=== PATIENT | male | born 1935 | race African-American/Black ===

== ENCOUNTER 2021-05-29 19:45 | Emergency (ER) | payer OTHER ==
[~2021-05-29] VITALS: Ht 172.7 cm; Wt 63.6 kg
[2021-05-29] MEDS ORDERED: TIOT185 IH (20:24)
[2021-05-29] MEDS ORDERED: ACET-2080 PO (20:24)
[2021-05-29] MEDS ORDERED: IPRA4AER IH (20:24)
[2021-05-29 20:38] LABS: BASOPHILS % (AUTO) 0.5 % (0.0-2.0); EOSINOPHILS % (AUTO) 3.7 % (1.0-6.0); HEMOGLOBIN 10.9 g/dL (13.5-17.5); LYMPHOCYTES # (AUTO) 1.9 K/uL (1.0-4.8); LYMPHOCYTES % (AUTO) 40.8 % (22.0-44.0); MEAN CORPUSCULAR HGB CONC 33.1 G/dL (31.0-37.0); MEAN CORPUSCULAR VOLUME 97 fL (80-100); MONOCYTES # (AUTO) 0.4 K/uL (0.1-1.0); MONOCYTES % (AUTO) 9.2 % (2.0-9.0); NEUTROPHILS # (AUTO) 2.1 K/uL (1.8-7.7); NEUTROPHILS % (AUTO) 45.8 % (40.0-70.0); PLATELET COUNT (AUTO) 165 K/uL (150-450); RED BLOOD CELL COUNT(AUTO) 3.42 MIL/uL (4.50-5.90); RED CELL DISTRIBUTION WIDTH 14.7 % (11.5-14.5)
[2021-05-29 20:43] LABS: COVID AG,FIA SOURCE NASOPHARYNGEAL
[2021-05-29] MEDS ORDERED: PERTUSS(ACELL),DIPH,TET VAC/PF 0.5 ML SYRINGE IM. ONE (20:45)
[2021-05-29] MEDS ORDERED: BACITRACIN 0.9 GM PACKET OINTMENT TP ONE (20:45)
[2021-05-29] MEDS ORDERED: LIDOCAINE 1% 10 ML VIAL SQ ONE (20:45)
[2021-05-29 20:47] LABS: ANION GAP 11 mmol/L (8-16); CALCIUM, TOTAL 8.7 mg/dL (8.8-10.5); CARBON DIOXIDE 29 mmol/L (22-29); CHLORIDE 104 mmol/L (98-107); CREATININE 1.02 mg/dL (0.60-1.30); GLUCOSE,RANDOM 96 mg/dL (70-110); POTASSIUM 4.8 mmol/L (3.5-5.1); SODIUM SERUM 144 mmol/L (136-145); UREA NITROGEN, BLOOD 20 mg/dL (7-18)
[2021-05-29 20:49] LABS: GLOMERULAR FILTR. RATE CALC > 60 mL/min (>60)
[2021-05-29 20:52] LABS: ALANINE AMINOTRANSFERASE 47 U/L (12-78); ALBUMIN 3.3 g/dL (3.4-5.0); ALKALINE PHOSPHATASE 69 U/L (46-116); ASPARTATE AMINOTRANSFERASE 47 U/L (15-37); BILIRUBIN,TOTAL 0.5 mg/dL (0.1-1.0); LIPASE 29 U/L (73-393); TOTAL PROTEIN, SERUM 7.5 g/dL (6.4-8.2)
[2021-05-29 20:54] LABS: AMMONIA 16 umol/L (11-32)
[2021-05-29 20:57] LABS: B-TYPE NATRIURETIC PEPTIDE 138 pg/mL (0-100)
[2021-05-29 21:13] LABS: LACTIC ACID 0.9 mmol/L (0.4-2.0)
[2021-05-30 00:17] LABS: APPEARANCE,URINE CLEAR (CLEAR); BILIRUBIN,URINE NEGATIVE (NEGATIVE); GLUCOSE, URINE (UA) NEGATIVE (NEGATIVE); KETONES,URINE NEGATIVE (NEGATIVE); LEUKOCYTE ESTERASE ,URINE NEGATIVE (NEGATIVE); NITRATE,URINE NEGATIVE (NEGATIVE); OCCULT BLOOD,URINE NEGATIVE (NEGATIVE); PH,URINE 6.5 (5.0-8.0); PROTEIN,URINE TRACE mg/dL (NEGATIVE); SPECIFIC GRAVITIY, URINE 1.025 (1.003-1.030)
[2021-05-30 00:24] LABS: AMPHET/METH SCREEN,URINE NEGATIVE (NEGATIVE); BARBITURATE SCREEN, URINE NEGATIVE (NEGATIVE); BENZODIAZEPINES SCREEN,URINE NEGATIVE (NEGATIVE); CANNABINOID SCREEN,URINE NEGATIVE (NEGATIVE); COCAINE SCREEN,URINE NEGATIVE (NEGATIVE); METHADONE SCREEN, URINE NEGATIVE (NEGATIVE); OPIATE SCREEN,URINE NEGATIVE (NEGATIVE)
[2021-05-30 00:25] LABS: PHENCYCLIDINE SCREEN,URINE NEGATIVE (NEGATIVE)
[2021-05-30 00:31] LABS: BACTERIA,URINE None Seen /HPF (None Seen); RBC,URINE 0-2 /HPF (0-2); WBC,URINE 0-2 /HPF (0-5)
[2021-05-30 01:50] VITALS: BP 149/81
== END 2021-05-30 02:00 | disposition short-term general hospital (02) ==
LOC: EMS 19:45
DX: S61.215A Laceration without foreign body of left ring finger without damage to nail, initial encounter (principal); R41.82 Altered mental status, unspecified; Z20.822 Contact with and (suspected) exposure to COVID-19; Z79.899 Other long term (current) drug therapy; W18.39XA Other fall on same level, initial encounter; Y93.89 Activity, other specified; Y92.89 Other specified places as the place of occurrence of the external cause; Y99.8 Other external cause status
CPT/HCPCS: 12001; 36415; 70450; 71045; 73130; 80053; 80307; 81001; 82140; 82962; 83605; 83690; 83880; 84484; 85025; 87426; 90471; 90715; 93005; 99285; G0480; J3490

== ENCOUNTER 2022-06-30 13:35 | Inpatient (IN) | payer OTHER ==
[~2022-06-30] VITALS: Ht 177.8 cm; Wt 66.5 kg
[~2022-06-30 13:35] MED LIST: ACET-2080 PO; IPRA4AER IH; TIOT185 IH
[2022-06-30] MEDS ORDERED: LABETALOL HCL 5 MG/ML 20 ML VIAL IVP PRN ×2 (13:45)
[2022-06-30] MEDS ORDERED: IOHEXOL 350 MG/ML 100 ML VIAL ONE (13:53)
[2022-06-30] MEDS ORDERED: SODIUM CHLORIDE 0.9% 100 ML ONE (13:53)
[2022-06-30 14:00] LABS: BASOPHILS % (AUTO) 0.2 % (0.0-2.0); EOSINOPHILS % (AUTO) 0 % (1.0-6.0); HEMATOCRIT 35.9 % (41-53); HEMOGLOBIN 11.5 g/dL (13.5-17.5); LYMPHOCYTES # (AUTO) 0.3 K/uL (1.0-4.8); LYMPHOCYTES % (AUTO) 9.4 % (22.0-44.0); MEAN CORPUSCULAR HEMOGLOBIN 30.7 pg (26.0-34.0); MEAN CORPUSCULAR VOLUME 96 fL (80-100); MONOCYTES # (AUTO) 0.2 K/uL (0.1-1.0); MONOCYTES % (AUTO) 5.8 % (2.0-9.0); NEUTROPHILS # (AUTO) 2.8 K/uL (1.8-7.7); NEUTROPHILS % (AUTO) 84.6 % (40.0-70.0); PLATELET COUNT (AUTO) 109 K/uL (150-450); RED BLOOD CELL COUNT(AUTO) 3.74 MIL/uL (4.50-5.90); RED CELL DISTRIBUTION WIDTH 15.9 % (11.5-14.5)
[2022-06-30 14:11] LABS: ANION GAP 7 mmol/L (8-16); CALCIUM, TOTAL 9.5 mg/dL (8.8-10.5); CARBON DIOXIDE 27 mmol/L (22-29); CHLORIDE 105 mmol/L (98-107); CREATININE 0.97 mg/dL (0.60-1.30); GLOMERULAR FILTR. RATE CALC > 60 mL/min (>60); GLUCOSE,RANDOM 125 mg/dL (70-110); POTASSIUM 5.7 mmol/L (3.5-5.1); SODIUM SERUM 139 mmol/L (136-145); UREA NITROGEN, BLOOD 43 mg/dL (7-18)
[2022-06-30 14:13] LABS: PROTHROMBIN TIME 11.1 SEC (9.4-11.6)
[2022-06-30 14:17] LABS: ALANINE AMINOTRANSFERASE 42 U/L (12-78); ALBUMIN 3.1 g/dL (3.4-5.0); ALKALINE PHOSPHATASE 151 U/L (46-116); ASPARTATE AMINOTRANSFERASE 60 U/L (15-37); BILIRUBIN,TOTAL 0.3 mg/dL (0.1-1.0); TOTAL PROTEIN, SERUM 7.6 g/dL (6.4-8.2)
[2022-06-30] MEDS: SODIUM CHLORIDE 0.9% 2,000 ML IV ONE ×2 (14:45→15:26)
[2022-06-30 15:45] LABS: LACTIC ACID 0.9 mmol/L (0.4-2.0)
[2022-06-30] MEDS ORDERED: BISACODYL 10 MG RECTAL RECTAL SUPPOSITORY PR PRN (15:45)
[2022-06-30] MEDS ORDERED: HYDROCODONE/ACETAMINOPHEN 5-325 MG TABLET PO PRN (15:45)
[2022-06-30] MEDS ORDERED: ASPIRIN 81 MG CHEWABLE TABLET PO ONE (15:45)
[2022-06-30] MEDS ORDERED: MAGNESIUM HYDROXIDE SUSPENSION 30 ML UDCUP PO PRN (15:45)
[2022-06-30] MEDS ORDERED: SODIUM CHLORIDE 0.9% 2,000 ML IV ONE (15:45)
[2022-06-30] MEDS ORDERED: IPRATROPIUM BROMIDE 0.5 MG/2.5 ML NEB SOLUTION NEB PRN (15:45)
[2022-06-30] MEDS ORDERED: ACETAMINOPHEN 325 MG TABLET PO PRN (15:45)
[2022-06-30] MEDS ORDERED: ONDANSETRON HCL 4 MG/2 ML VIAL IVP PRN (15:45)
[2022-06-30] MEDS ORDERED: MORPHINE SULFATE 2 MG/ML SYRINGE IVP PRN (15:45)
[2022-06-30] MEDS ORDERED: ALBUTEROL SULFATE 2.5 MG/0.5 ML NEB SOLUTION NEB PRN (15:45)
[2022-06-30] MEDS ORDERED: ZOLPIDEM TARTRATE 5 MG TABLET PO PRN (15:45)
[2022-06-30] MEDS ORDERED: CefTRIAXone 1 GM/DEXTROSE 50 ML IV ONE (15:45)
[2022-06-30] MEDS: BENZONATATE 100 MG CAPSULE PO SCH ×2 (16:00→19:55)
[2022-06-30 16:03] LABS: APPEARANCE,URINE TURBID (CLEAR); BILIRUBIN,URINE NEGATIVE (NEGATIVE); GLUCOSE, URINE (UA) NEGATIVE (NEGATIVE); KETONES,URINE NEGATIVE (NEGATIVE); LEUKOCYTE ESTERASE ,URINE LARGE (NEGATIVE); NITRATE,URINE NEGATIVE (NEGATIVE); OCCULT BLOOD,URINE LARGE (NEGATIVE); PH,URINE 5.5 (5.0-8.0); PROTEIN,URINE 100-200,SEE CONFIRM mg/dL (NEGATIVE); UROBILINOGEN,URINE <=1.0 mg/dL (<=1.0)
[2022-06-30 16:10] LABS: AMPHET/METH SCREEN,URINE NEGATIVE (NEGATIVE); BARBITURATE SCREEN, URINE NEGATIVE (NEGATIVE); BENZODIAZEPINES SCREEN,URINE NEGATIVE (NEGATIVE); CANNABINOID SCREEN,URINE NEGATIVE (NEGATIVE); COCAINE SCREEN,URINE NEGATIVE (NEGATIVE); METHADONE SCREEN, URINE NEGATIVE (NEGATIVE); OPIATE SCREEN,URINE NEGATIVE (NEGATIVE); PHENCYCLIDINE SCREEN,URINE NEGATIVE (NEGATIVE)
[2022-06-30 16:13] LABS: BACTERIA,URINE Many /HPF (None Seen); RBC,URINE 26-50 /HPF (0-2); SQUAMOUS EPITHELIAL CELL,UR Few /LPF (None Seen); SULFOSALICYLIC ACID,URINE 3+ (Negative); WBC,URINE 51-100 /HPF (0-5)
[2022-06-30] MEDS: HEPARIN SODIUM,PORCINE 5,000 UNITS/ML VIAL SQ SCH (17:42)
[2022-06-30] MEDS: AZITHROMYCIN 500 MG/NS 250 ML IV SCH (17:43)
[2022-06-30] MEDS: MethylPREDNISolone SOD SUCC 125 MG/2 ML VIAL IVP SCH (18:05)
[2022-06-30] MEDS: DOCUSATE SODIUM 100 MG CAPSULE PO SCH (19:53)
[2022-06-30] MEDS: ALBUTEROL SULFATE 2.5 MG/0.5 ML NEB SOLUTION NEB SCH (19:54)
[2022-06-30] MEDS: GuaiFENesin SR 600 MG ER TABLET PO SCH (19:54)
[2022-06-30] MEDS: IPRATROPIUM BROMIDE 0.5 MG/2.5 ML NEB SOLUTION NEB SCH (19:54)
[2022-06-30] MEDS: ATORVASTATIN CALCIUM 20 MG TABLET PO SCH (19:54)
[2022-06-30] MEDS ORDERED: SODIUM CHLORIDE 0.9% 500 ML IV ONE (23:30)
[2022-07-01] VITALS (7 sets, daily range): BP systolic 93–131; BP diastolic 7–88
[2022-07-01] MEDS: HEPARIN SODIUM,PORCINE 5,000 UNITS/ML VIAL SQ SCH ×4 (00:30→23:43)
[2022-07-01] MEDS: MethylPREDNISolone SOD SUCC 125 MG/2 ML VIAL IVP SCH ×4 (00:38→18:25)
[2022-07-01] MEDS: ALBUTEROL SULFATE 2.5 MG/0.5 ML NEB SOLUTION NEB SCH ×4 (02:26→20:07)
[2022-07-01] MEDS: IPRATROPIUM BROMIDE 0.5 MG/2.5 ML NEB SOLUTION NEB SCH ×4 (02:26→20:07)
[2022-07-01 06:55] LABS: BASOPHILS % (AUTO) 0.1 % (0.0-2.0); EOSINOPHILS % (AUTO) 0 % (1.0-6.0); HEMATOCRIT 32.6 % (41-53); HEMOGLOBIN 10.3 g/dL (13.5-17.5); LYMPHOCYTES # (AUTO) 0.2 K/uL (1.0-4.8); LYMPHOCYTES % (AUTO) 4.1 % (22.0-44.0); MEAN CORPUSCULAR HEMOGLOBIN 30.5 pg (26.0-34.0); MEAN CORPUSCULAR HGB CONC 31.5 G/dL (31.0-37.0); MEAN CORPUSCULAR VOLUME 97 fL (80-100); MONOCYTES # (AUTO) 0.1 K/uL (0.1-1.0); MONOCYTES % (AUTO) 1.7 % (2.0-9.0); NEUTROPHILS # (AUTO) 4.6 K/uL (1.8-7.7); PLATELET COUNT (AUTO) 110 K/uL (150-450); RED BLOOD CELL COUNT(AUTO) 3.38 MIL/uL (4.50-5.90); RED CELL DISTRIBUTION WIDTH 16.2 % (11.5-14.5)
[2022-07-01 07:03] LABS: NEUTROPHILS % (AUTO) 94.1 % (40.0-70.0)
[2022-07-01 07:04] LABS: ANION GAP 3 mmol/L (8-16); CALCIUM, TOTAL 8.8 mg/dL (8.8-10.5); CARBON DIOXIDE 25 mmol/L (22-29); CHLORIDE 107 mmol/L (98-107); CREATININE 1.13 mg/dL (0.60-1.30); GLOMERULAR FILTR. RATE CALC > 60 mL/min (>60); GLUCOSE,RANDOM 111 mg/dL (70-110); POTASSIUM 6.5 mmol/L (3.5-5.1); SODIUM SERUM 135 mmol/L (136-145); UREA NITROGEN, BLOOD 41 mg/dL (7-18)
[2022-07-01 07:09] LABS: CHOL/HDL RATIO 1.8 (4.2-7.3)
[2022-07-01] MEDS ORDERED: SODIUM POLYSTYRENE SULFONATE 15 GM/60 ML SUSPENSION BOTTLE PR ONE ×2 (07:45→16:00)
[2022-07-01] MEDS: BENZONATATE 100 MG CAPSULE PO SCH ×3 (09:00→20:03)
[2022-07-01] MEDS: PANTOPRAZOLE SODIUM 40 MG DR TABLET PO SCH (09:00)
[2022-07-01] MEDS: GuaiFENesin SR 600 MG ER TABLET PO SCH ×2 (09:00→20:03)
[2022-07-01] MEDS: DOCUSATE SODIUM 100 MG CAPSULE PO SCH ×2 (09:00→20:03)
[2022-07-01 15:10] LABS: CHOL/HDL RATIO 1.7 (4.2-7.3)
[2022-07-01 15:11] LABS: POTASSIUM 6.4 mmol/L (3.5-5.1)
[2022-07-01] MEDS: CefTRIAXone 1 GM/DEXTROSE 50 ML IV SCH (15:50)
[2022-07-01] MEDS: AZITHROMYCIN 500 MG/NS 250 ML IV SCH (17:33)
[2022-07-01] MEDS: ATORVASTATIN CALCIUM 20 MG TABLET PO SCH (20:03)
[2022-07-02] MEDS: MethylPREDNISolone SOD SUCC 125 MG/2 ML VIAL IVP SCH ×5 (00:06→23:25)
[2022-07-02] MEDS: ALBUTEROL SULFATE 2.5 MG/0.5 ML NEB SOLUTION NEB SCH ×4 (02:19→20:08)
[2022-07-02] MEDS: IPRATROPIUM BROMIDE 0.5 MG/2.5 ML NEB SOLUTION NEB SCH ×4 (02:19→20:08)
[2022-07-02 04:36] VITALS: BP 107/66
[2022-07-02] MEDS: HEPARIN SODIUM,PORCINE 5,000 UNITS/ML VIAL SQ SCH (08:00)
[2022-07-02 08:11] VITALS: BP 130/80
[2022-07-02 08:47] LABS: BASOPHILS % (AUTO) 0.1 % (0.0-2.0); EOSINOPHILS % (AUTO) 0 % (1.0-6.0); HEMATOCRIT 32.7 % (41-53); HEMOGLOBIN 10.3 g/dL (13.5-17.5); LYMPHOCYTES # (AUTO) 0.4 K/uL (1.0-4.8); LYMPHOCYTES % (AUTO) 5.7 % (22.0-44.0); MEAN CORPUSCULAR HEMOGLOBIN 30.2 pg (26.0-34.0); MEAN CORPUSCULAR HGB CONC 31.5 G/dL (31.0-37.0); MEAN CORPUSCULAR VOLUME 96 fL (80-100); MONOCYTES # (AUTO) 0.2 K/uL (0.1-1.0); MONOCYTES % (AUTO) 3.3 % (2.0-9.0); NEUTROPHILS # (AUTO) 5.8 K/uL (1.8-7.7); RED BLOOD CELL COUNT(AUTO) 3.41 MIL/uL (4.50-5.90); RED CELL DISTRIBUTION WIDTH 16.2 % (11.5-14.5)
[2022-07-02 08:57] LABS: ANION GAP 4 mmol/L (8-16); CARBON DIOXIDE 26 mmol/L (22-29); CHLORIDE 109 mmol/L (98-107); CREATININE 1.14 mg/dL (0.60-1.30); GLOMERULAR FILTR. RATE CALC > 60 mL/min (>60); GLUCOSE,RANDOM 133 mg/dL (70-110); POTASSIUM 5.6 mmol/L (3.5-5.1); SODIUM SERUM 139 mmol/L (136-145); UREA NITROGEN, BLOOD 43 mg/dL (7-18)
[2022-07-02] MEDS: DOCUSATE SODIUM 100 MG CAPSULE PO SCH ×2 (09:00→20:08)
[2022-07-02] MEDS: BENZONATATE 100 MG CAPSULE PO SCH ×3 (09:00→20:09)
[2022-07-02] MEDS: PANTOPRAZOLE SODIUM 40 MG DR TABLET PO SCH (09:00)
[2022-07-02] MEDS: GuaiFENesin SR 600 MG ER TABLET PO SCH ×2 (09:00→20:09)
[2022-07-02 09:36] LABS: NEUTROPHILS % (AUTO) 90.9 % (40.0-70.0); PLATELET COUNT (AUTO) 97 K/uL (150-450)
[2022-07-02 12:03] VITALS: BP 134/87
[2022-07-02] MEDS ORDERED: SODIUM POLYSTYRENE SULFONATE 15 GM/60 ML SUSPENSION BOTTLE PR ONE (13:30)
[2022-07-02 14:16] LABS: COVID AG,FIA SOURCE NASOPHARYNGEAL
[2022-07-02 16:02] VITALS: BP 141/87
[2022-07-02] MEDS: CefTRIAXone 1 GM/DEXTROSE 50 ML IV SCH (16:14)
[2022-07-02] MEDS: AZITHROMYCIN 500 MG/NS 250 ML IV SCH (17:32)
[2022-07-02 19:31] VITALS: BP 140/90
[2022-07-02] MEDS: ATORVASTATIN CALCIUM 20 MG TABLET PO SCH (20:09)
[2022-07-03] VITALS (7 sets, daily range): BP systolic 133–167; BP diastolic 86–116
[2022-07-03] MEDS: ALBUTEROL SULFATE 2.5 MG/0.5 ML NEB SOLUTION NEB SCH ×4 (02:47→19:34)
[2022-07-03] MEDS: IPRATROPIUM BROMIDE 0.5 MG/2.5 ML NEB SOLUTION NEB SCH ×4 (02:47→19:35)
[2022-07-03] MEDS: MethylPREDNISolone SOD SUCC 125 MG/2 ML VIAL IVP SCH ×4 (06:05→23:19)
[2022-07-03 07:29] LABS: BASOPHILS % (AUTO) 0.1 % (0.0-2.0); EOSINOPHILS % (AUTO) 0 % (1.0-6.0); HEMATOCRIT 34.2 % (41-53); HEMOGLOBIN 10.8 g/dL (13.5-17.5); LYMPHOCYTES # (AUTO) 0.2 K/uL (1.0-4.8); MEAN CORPUSCULAR HEMOGLOBIN 30.7 pg (26.0-34.0); MEAN CORPUSCULAR HGB CONC 31.7 G/dL (31.0-37.0); MEAN CORPUSCULAR VOLUME 97 fL (80-100); MONOCYTES # (AUTO) 0.2 K/uL (0.1-1.0); MONOCYTES % (AUTO) 2.7 % (2.0-9.0); NEUTROPHILS # (AUTO) 5.2 K/uL (1.8-7.7); PLATELET COUNT (AUTO) 81 K/uL (150-450); RED BLOOD CELL COUNT(AUTO) 3.52 MIL/uL (4.50-5.90); RED CELL DISTRIBUTION WIDTH 16.5 % (11.5-14.5)
[2022-07-03 07:31] LABS: NEUTROPHILS % (AUTO) 93.2 % (40.0-70.0)
[2022-07-03 07:42] LABS: ANION GAP 7 mmol/L (8-16); CALCIUM, TOTAL 9.6 mg/dL (8.8-10.5); CARBON DIOXIDE 26 mmol/L (22-29); CHLORIDE 110 mmol/L (98-107); CREATININE 1.11 mg/dL (0.60-1.30); GLOMERULAR FILTR. RATE CALC > 60 mL/min (>60); GLUCOSE,RANDOM 139 mg/dL (70-110); POTASSIUM 5.3 mmol/L (3.5-5.1); SODIUM SERUM 143 mmol/L (136-145); UREA NITROGEN, BLOOD 52 mg/dL (7-18)
[2022-07-03] MEDS: DOCUSATE SODIUM 100 MG CAPSULE PO SCH ×2 (09:00→20:19)
[2022-07-03] MEDS: GuaiFENesin SR 600 MG ER TABLET PO SCH ×2 (09:00→20:19)
[2022-07-03] MEDS: PANTOPRAZOLE SODIUM 40 MG DR TABLET PO SCH (09:00)
[2022-07-03] MEDS: BENZONATATE 100 MG CAPSULE PO SCH ×3 (09:00→20:19)
[2022-07-03] MEDS ORDERED: HydrALAZINE HCL 20 MG/ML VIAL IVP PRN (10:15)
[2022-07-03] MEDS: CefTRIAXone 1 GM/DEXTROSE 50 ML IV SCH (16:23)
[2022-07-03] MEDS ORDERED: DEXTROSE 5%-0.45% SODIUM CHL 1,000 ML IV ONE (16:45)
[2022-07-03] MEDS: AZITHROMYCIN 500 MG/NS 250 ML IV SCH (17:03)
[2022-07-03] MEDS: ATORVASTATIN CALCIUM 20 MG TABLET PO SCH (20:19)
[2022-07-04] MEDS: IPRATROPIUM BROMIDE 0.5 MG/2.5 ML NEB SOLUTION NEB SCH ×4 (02:48→20:00)
[2022-07-04] MEDS: ALBUTEROL SULFATE 2.5 MG/0.5 ML NEB SOLUTION NEB SCH ×4 (02:48→20:00)
[2022-07-04 04:00] VITALS: BP 160/90
[2022-07-04] MEDS: MethylPREDNISolone SOD SUCC 125 MG/2 ML VIAL IVP SCH ×4 (05:58→23:21)
[2022-07-04 06:26] LABS: MAGNESIUM 2.2 mg/dL (1.80-2.40); PHOSPHORUS 3.4 mg/dL (2.5-4.9)
[2022-07-04] MEDS ORDERED: SODIUM CHLORIDE 0.9% 250 ML IV ONE (07:27)
[2022-07-04] MEDS: DOCUSATE SODIUM 100 MG CAPSULE PO SCH ×2 (07:33→20:07)
[2022-07-04] MEDS: GuaiFENesin SR 600 MG ER TABLET PO SCH ×2 (07:34→20:07)
[2022-07-04] MEDS: BENZONATATE 100 MG CAPSULE PO SCH ×3 (07:34→20:07)
[2022-07-04] MEDS: PANTOPRAZOLE SODIUM 40 MG DR TABLET PO SCH (07:34)
[2022-07-04 08:23] VITALS: BP 163/104
[2022-07-04 12:21] VITALS: BP 169/92
[2022-07-04] MEDS ORDERED: SODIUM POLYSTYRENE SULFONATE 15 GM/60 ML SUSPENSION BOTTLE PR ONE ×2 (12:30→14:15)
[2022-07-04] MEDS: CefTRIAXone 1 GM/DEXTROSE 50 ML IV SCH (15:55)
[2022-07-04] MEDS: AZITHROMYCIN 500 MG/NS 250 ML IV SCH (16:42)
[2022-07-04 18:31] VITALS: BP 150/110
[2022-07-04 20:02] VITALS: BP 159/105
[2022-07-04] MEDS: ATORVASTATIN CALCIUM 20 MG TABLET PO SCH (20:07)
[2022-07-05 00:18] VITALS: BP 154/97
[2022-07-05] MEDS: IPRATROPIUM BROMIDE 0.5 MG/2.5 ML NEB SOLUTION NEB SCH ×4 (03:17→19:28)
[2022-07-05] MEDS: ALBUTEROL SULFATE 2.5 MG/0.5 ML NEB SOLUTION NEB SCH ×4 (03:17→19:28)
[2022-07-05 04:04] VITALS: BP 157/103
[2022-07-05] MEDS: MethylPREDNISolone SOD SUCC 125 MG/2 ML VIAL IVP SCH ×4 (06:06→23:10)
[2022-07-05 06:13] LABS: EOSINOPHILS % (AUTO) 0 % (1.0-6.0); HEMATOCRIT 34.4 % (41-53); HEMOGLOBIN 10.9 g/dL (13.5-17.5); LYMPHOCYTES # (AUTO) 0.2 K/uL (1.0-4.8); LYMPHOCYTES % (AUTO) 3.6 % (22.0-44.0); MEAN CORPUSCULAR HEMOGLOBIN 30.3 pg (26.0-34.0); MEAN CORPUSCULAR HGB CONC 31.7 G/dL (31.0-37.0); MEAN CORPUSCULAR VOLUME 96 fL (80-100); MONOCYTES # (AUTO) 0.2 K/uL (0.1-1.0); MONOCYTES % (AUTO) 3.1 % (2.0-9.0); NEUTROPHILS # (AUTO) 4.7 K/uL (1.8-7.7); PLATELET COUNT (AUTO) 80 K/uL (150-450); RED CELL DISTRIBUTION WIDTH 16.1 % (11.5-14.5)
[2022-07-05 06:29] LABS: ANION GAP 7 mmol/L (8-16); CALCIUM, TOTAL 9.7 mg/dL (8.8-10.5); CARBON DIOXIDE 27 mmol/L (22-29); CHLORIDE 110 mmol/L (98-107); CREATININE 1.03 mg/dL (0.60-1.30); GLOMERULAR FILTR. RATE CALC > 60 mL/min (>60); GLUCOSE,RANDOM 122 mg/dL (70-110); POTASSIUM 4.9 mmol/L (3.5-5.1); SODIUM SERUM 144 mmol/L (136-145); UREA NITROGEN, BLOOD 53 mg/dL (7-18)
[2022-07-05 07:09] LABS: NEUTROPHILS % (AUTO) 93.3 % (40.0-70.0)
[2022-07-05] MEDS: BENZONATATE 100 MG CAPSULE PO SCH ×3 (07:43→20:28)
[2022-07-05] MEDS: DOCUSATE SODIUM 100 MG CAPSULE PO SCH ×2 (07:43→20:28)
[2022-07-05] MEDS: GuaiFENesin SR 600 MG ER TABLET PO SCH ×2 (07:43→20:28)
[2022-07-05] MEDS: PANTOPRAZOLE SODIUM 40 MG DR TABLET PO SCH (07:43)
[2022-07-05 07:57] VITALS: BP 142/80
[2022-07-05 11:50] VITALS: BP 158/104
[2022-07-05 15:03] VITALS: BP 150/91
[2022-07-05] MEDS: CefTRIAXone 1 GM/DEXTROSE 50 ML IV SCH (15:37)
[2022-07-05] MEDS: AZITHROMYCIN 500 MG/NS 250 ML IV SCH (16:28)
[2022-07-05 19:46] VITALS: BP 155/83
[2022-07-05] MEDS: ATORVASTATIN CALCIUM 20 MG TABLET PO SCH (20:28)
[2022-07-06 00:21] VITALS: BP 154/101
[2022-07-06] MEDS: ALBUTEROL SULFATE 2.5 MG/0.5 ML NEB SOLUTION NEB SCH ×4 (02:13→19:45)
[2022-07-06] MEDS: IPRATROPIUM BROMIDE 0.5 MG/2.5 ML NEB SOLUTION NEB SCH ×4 (02:13→19:45)
[2022-07-06 04:25] VITALS: BP 155/98
[2022-07-06] MEDS: MethylPREDNISolone SOD SUCC 125 MG/2 ML VIAL IVP SCH ×3 (05:36→12:27)
[2022-07-06 06:53] LABS: BASOPHILS % (AUTO) 0.1 % (0.0-2.0); EOSINOPHILS % (AUTO) 0 % (1.0-6.0); HEMATOCRIT 32.6 % (41-53); HEMOGLOBIN 10.3 g/dL (13.5-17.5); LYMPHOCYTES # (AUTO) 0.3 K/uL (1.0-4.8); LYMPHOCYTES % (AUTO) 5.7 % (22.0-44.0); MEAN CORPUSCULAR HEMOGLOBIN 30.4 pg (26.0-34.0); MEAN CORPUSCULAR HGB CONC 31.7 G/dL (31.0-37.0); MEAN CORPUSCULAR VOLUME 96 fL (80-100); MONOCYTES # (AUTO) 0.1 K/uL (0.1-1.0); MONOCYTES % (AUTO) 2.5 % (2.0-9.0); NEUTROPHILS # (AUTO) 4.4 K/uL (1.8-7.7); PLATELET COUNT (AUTO) 80 K/uL (150-450)
[2022-07-06 06:57] LABS: ANION GAP 4 mmol/L (8-16); CARBON DIOXIDE 30 mmol/L (22-29); CHLORIDE 112 mmol/L (98-107); CREATININE 1.05 mg/dL (0.60-1.30); GLOMERULAR FILTR. RATE CALC > 60 mL/min (>60); GLUCOSE,RANDOM 129 mg/dL (70-110); POTASSIUM 4.9 mmol/L (3.5-5.1); SODIUM SERUM 146 mmol/L (136-145); UREA NITROGEN, BLOOD 53 mg/dL (7-18)
[2022-07-06 07:40] LABS: NEUTROPHILS % (AUTO) 91.7 % (40.0-70.0)
[2022-07-06 08:01] VITALS: BP 150/97
[2022-07-06] MEDS: DOCUSATE SODIUM 100 MG CAPSULE PO SCH ×2 (08:25→22:31)
[2022-07-06] MEDS: GuaiFENesin SR 600 MG ER TABLET PO SCH ×2 (08:25→22:31)
[2022-07-06] MEDS: BENZONATATE 100 MG CAPSULE PO SCH ×3 (08:26→22:32)
[2022-07-06] MEDS: PANTOPRAZOLE SODIUM 40 MG DR TABLET PO SCH (08:26)
[2022-07-06 12:03] VITALS: BP 159/95
[2022-07-06] MEDS ORDERED: SODIUM CHLORIDE 0.9% 1,000 ML ONE (13:37)
[2022-07-06] MEDS ORDERED: MIDAZOLAM HCL 2 MG/2 ML VIAL ONE (14:11)
[2022-07-06] MEDS ORDERED: FentaNYL CITRATE PF 100 MCG/2 ML VIAL ONE (14:12)
[2022-07-06] MEDS ORDERED: SODIUM CHLORIDE 0.9% 100 ML ONE (14:27)
[2022-07-06] MEDS: CefTRIAXone 1 GM/DEXTROSE 50 ML IV SCH ×2 (15:38→16:42)
[2022-07-06] MEDS ORDERED: MethylPREDNISolone SOD SUCC 40 MG/ML VIAL IVP SCH (16:00)
[2022-07-06 16:05] VITALS: BP 151/106
[2022-07-06] MEDS: AZITHROMYCIN 500 MG/NS 250 ML IV SCH (17:32)
[2022-07-06 20:40] VITALS: BP 149/95
[2022-07-06] MEDS: ATORVASTATIN CALCIUM 20 MG TABLET PO SCH (22:31)
[2022-07-06] MEDS: MethylPREDNISolone SOD SUCC 40 MG/ML VIAL IVP SCH (23:16)
[2022-07-07] MEDS: ALBUTEROL SULFATE 2.5 MG/0.5 ML NEB SOLUTION NEB SCH ×4 (02:17→20:01)
[2022-07-07] MEDS: IPRATROPIUM BROMIDE 0.5 MG/2.5 ML NEB SOLUTION NEB SCH ×4 (02:17→20:00)
[2022-07-07 04:53] VITALS: BP 152/95
[2022-07-07] MEDS ORDERED: PROPOFOL 1% 20 ML VIAL IVP ONE (06:04)
[2022-07-07] MEDS ORDERED: LIDOCAINE/PF 2% 5 ML SYRINGE IVP ONE (06:04)
[2022-07-07 06:57] LABS: BASOPHILS % (AUTO) 0.1 % (0.0-2.0); EOSINOPHILS % (AUTO) 0 % (1.0-6.0); HEMOGLOBIN 10.5 g/dL (13.5-17.5); LYMPHOCYTES # (AUTO) 0.2 K/uL (1.0-4.8); LYMPHOCYTES % (AUTO) 1.5 % (22.0-44.0); MEAN CORPUSCULAR HEMOGLOBIN 30.4 pg (26.0-34.0); MEAN CORPUSCULAR HGB CONC 31.9 G/dL (31.0-37.0); MEAN CORPUSCULAR VOLUME 95 fL (80-100); MONOCYTES # (AUTO) 0.1 K/uL (0.1-1.0); MONOCYTES % (AUTO) 1.3 % (2.0-9.0); NEUTROPHILS # (AUTO) 9.8 K/uL (1.8-7.7); PLATELET COUNT (AUTO) 66 K/uL (150-450); RED BLOOD CELL COUNT(AUTO) 3.46 MIL/uL (4.50-5.90); RED CELL DISTRIBUTION WIDTH 16.2 % (11.5-14.5)
[2022-07-07 07:02] LABS: NEUTROPHILS % (AUTO) 97.1 % (40.0-70.0)
[2022-07-07 07:14] LABS: ANION GAP 7 mmol/L (8-16); CALCIUM, TOTAL 9.2 mg/dL (8.8-10.5); CARBON DIOXIDE 27 mmol/L (22-29); CHLORIDE 113 mmol/L (98-107); CREATININE 0.92 mg/dL (0.60-1.30); GLOMERULAR FILTR. RATE CALC > 60 mL/min (>60); GLUCOSE,RANDOM 135 mg/dL (70-110); POTASSIUM 4.8 mmol/L (3.5-5.1); SODIUM SERUM 147 mmol/L (136-145); UREA NITROGEN, BLOOD 54 mg/dL (7-18)
[2022-07-07 08:11] VITALS: BP 132/86
[2022-07-07] MEDS: PANTOPRAZOLE SODIUM 40 MG DR TABLET PO SCH (09:07)
[2022-07-07] MEDS: DOCUSATE SODIUM 100 MG CAPSULE PO SCH ×2 (09:07→20:42)
[2022-07-07] MEDS: BENZONATATE 100 MG CAPSULE PO SCH ×3 (09:07→20:43)
[2022-07-07] MEDS: GuaiFENesin SR 600 MG ER TABLET PO SCH ×2 (09:08→20:42)
[2022-07-07] MEDS: MethylPREDNISolone SOD SUCC 40 MG/ML VIAL IVP SCH ×3 (09:08→23:36)
[2022-07-07 15:52] VITALS: BP 154/103
[2022-07-07] MEDS: CefTRIAXone 1 GM/DEXTROSE 50 ML IV SCH (16:03)
[2022-07-07] MEDS: AZITHROMYCIN 500 MG/NS 250 ML IV SCH (17:01)
[2022-07-07] MEDS: ATORVASTATIN CALCIUM 20 MG TABLET PO SCH (20:42)
[2022-07-07 21:00] VITALS: BP 161/101
[2022-07-08] MEDS: ALBUTEROL SULFATE 2.5 MG/0.5 ML NEB SOLUTION NEB SCH ×4 (03:06→20:20)
[2022-07-08] MEDS: IPRATROPIUM BROMIDE 0.5 MG/2.5 ML NEB SOLUTION NEB SCH ×4 (03:06→20:20)
[2022-07-08 04:48] VITALS: BP 151/86
[2022-07-08] MEDS: GuaiFENesin SR 600 MG ER TABLET PO SCH ×2 (08:03→20:01)
[2022-07-08] MEDS: MethylPREDNISolone SOD SUCC 40 MG/ML VIAL IVP SCH ×3 (08:03→23:44)
[2022-07-08] MEDS: DOCUSATE SODIUM 100 MG CAPSULE PO SCH ×2 (08:03→20:01)
[2022-07-08 08:13] VITALS: BP 150/84
[2022-07-08] MEDS: PANTOPRAZOLE SODIUM 40 MG DR TABLET PO SCH (09:00)
[2022-07-08] MEDS: BENZONATATE 100 MG CAPSULE PO SCH (09:00)
[2022-07-08 15:08] VITALS: BP 148/82
[2022-07-08] MEDS: CefTRIAXone 1 GM/DEXTROSE 50 ML IV SCH (15:14)
[2022-07-08] MEDS: AZITHROMYCIN 500 MG/NS 250 ML IV SCH (16:16)
[2022-07-08 19:26] VITALS: BP 163/96
[2022-07-08] MEDS: ATORVASTATIN CALCIUM 20 MG TABLET PO SCH (20:01)
[2022-07-09] MEDS: IPRATROPIUM BROMIDE 0.5 MG/2.5 ML NEB SOLUTION NEB SCH ×4 (02:42→20:20)
[2022-07-09] MEDS: ALBUTEROL SULFATE 2.5 MG/0.5 ML NEB SOLUTION NEB SCH ×4 (02:43→20:20)
[2022-07-09 05:19] VITALS: BP 159/86
[2022-07-09] MEDS: GuaiFENesin SR 600 MG ER TABLET PO SCH ×2 (07:54→21:45)
[2022-07-09] MEDS: MethylPREDNISolone SOD SUCC 40 MG/ML VIAL IVP SCH ×2 (07:54→16:12)
[2022-07-09] MEDS: DOCUSATE SODIUM 100 MG CAPSULE PO SCH ×2 (07:54→21:45)
[2022-07-09 08:08] VITALS: BP 147/86
[2022-07-09 15:52] VITALS: BP 119/71
[2022-07-09] MEDS: CefTRIAXone 1 GM/DEXTROSE 50 ML IV SCH (16:12)
[2022-07-09] MEDS: AZITHROMYCIN 500 MG/NS 250 ML IV SCH (17:07)
[2022-07-09 20:26] VITALS: BP 156/99
[2022-07-09] MEDS: ATORVASTATIN CALCIUM 20 MG TABLET PO SCH (21:45)
[2022-07-10] MEDS: MethylPREDNISolone SOD SUCC 40 MG/ML VIAL IVP SCH ×4 (01:17→23:57)
[2022-07-10] MEDS: IPRATROPIUM BROMIDE 0.5 MG/2.5 ML NEB SOLUTION NEB SCH ×4 (03:44→19:38)
[2022-07-10] MEDS: ALBUTEROL SULFATE 2.5 MG/0.5 ML NEB SOLUTION NEB SCH ×4 (03:44→19:38)
[2022-07-10 04:06] VITALS: BP 118/72
[2022-07-10] MEDS ORDERED: SODIUM CHLORIDE 0.9% 500 ML IV ONE (05:25)
[2022-07-10 07:43] VITALS: BP 124/74
[2022-07-10] MEDS: GuaiFENesin SR 600 MG ER TABLET PO SCH (08:23)
[2022-07-10] MEDS: DOCUSATE SODIUM 100 MG CAPSULE PO SCH ×2 (08:23→21:38)
[2022-07-10 15:18] VITALS: BP 118/72
[2022-07-10] MEDS: CefTRIAXone 1 GM/DEXTROSE 50 ML IV SCH (16:19)
[2022-07-10] MEDS: AZITHROMYCIN 500 MG/NS 250 ML IV SCH (17:06)
[2022-07-10 20:23] VITALS: BP 132/82
[2022-07-10] MEDS: GuaiFENesin [SUGAR-FREE] 200 MG/10 ML SOLUTION UDCUP GT PRN (21:39)
[2022-07-10] MEDS: ATORVASTATIN CALCIUM 20 MG TABLET PO SCH (21:39)
[2022-07-11] MEDS: ALBUTEROL SULFATE 2.5 MG/0.5 ML NEB SOLUTION NEB SCH ×4 (02:49→20:23)
[2022-07-11] MEDS: IPRATROPIUM BROMIDE 0.5 MG/2.5 ML NEB SOLUTION NEB SCH ×4 (02:49→20:23)
[2022-07-11 04:43] VITALS: BP 127/73
[2022-07-11 07:36] VITALS: BP 129/77
[2022-07-11] MEDS: DOCUSATE SODIUM 100 MG CAPSULE PO SCH ×2 (08:00→20:35)
[2022-07-11] MEDS: MethylPREDNISolone SOD SUCC 40 MG/ML VIAL IVP SCH ×3 (08:00→23:34)
[2022-07-11 15:43] VITALS: BP 121/68
[2022-07-11] MEDS: CefTRIAXone 1 GM/DEXTROSE 50 ML IV SCH (17:27)
[2022-07-11] MEDS: AZITHROMYCIN 500 MG/NS 250 ML IV SCH (17:27)
[2022-07-11 20:05] VITALS: BP 115/75
[2022-07-11] MEDS: ATORVASTATIN CALCIUM 20 MG TABLET PO SCH (20:35)
[2022-07-12] MEDS: ALBUTEROL SULFATE 2.5 MG/0.5 ML NEB SOLUTION NEB SCH ×4 (02:33→19:45)
[2022-07-12] MEDS: IPRATROPIUM BROMIDE 0.5 MG/2.5 ML NEB SOLUTION NEB SCH ×4 (02:33→19:45)
[2022-07-12] MEDS: GuaiFENesin [SUGAR-FREE] 200 MG/10 ML SOLUTION UDCUP GT PRN (04:11)
[2022-07-12 04:45] VITALS: BP 117/65
[2022-07-12 08:54] VITALS: BP 112/71
[2022-07-12] MEDS: DOCUSATE SODIUM 100 MG CAPSULE PO SCH ×2 (09:00→20:48)
[2022-07-12] MEDS: MethylPREDNISolone SOD SUCC 40 MG/ML VIAL IVP SCH ×2 (09:00→16:49)
[2022-07-12 11:06] LABS: ANION GAP 0 mmol/L (8-16); CARBON DIOXIDE 31 mmol/L (22-29); CHLORIDE 104 mmol/L (98-107); POTASSIUM 5.9 mmol/L (3.5-5.1); SODIUM SERUM 135 mmol/L (136-145)
[2022-07-12 11:07] LABS: CALCIUM, TOTAL 8.4 mg/dL (8.8-10.5); CREATININE 0.81 mg/dL (0.60-1.30); GLOMERULAR FILTR. RATE CALC > 60 mL/min (>60); GLUCOSE,RANDOM 160 mg/dL (70-110); UREA NITROGEN, BLOOD 30 mg/dL (7-18)
[2022-07-12 13:59] LABS: COVID AG,FIA SOURCE NASAL SWAB
[2022-07-12] MEDS ORDERED: SODIUM POLYSTYRENE SULFONATE 15 GM/60 ML SUSPENSION BOTTLE PR ONE (14:45)
[2022-07-12 16:04] VITALS: BP 112/52
[2022-07-12] MEDS: CefTRIAXone 1 GM/DEXTROSE 50 ML IV SCH (16:08)
[2022-07-12] MEDS ORDERED: SODIUM POLYSTYRENE SULFONATE 15 GM/60 ML SUSPENSION BOTTLE GT ONE (16:45)
[2022-07-12] MEDS: AZITHROMYCIN 500 MG/NS 250 ML IV SCH (17:52)
[2022-07-12 19:39] VITALS: BP 122/62
[2022-07-12] MEDS: ATORVASTATIN CALCIUM 20 MG TABLET PO SCH (20:47)
[2022-07-13] MEDS: MethylPREDNISolone SOD SUCC 40 MG/ML VIAL IVP SCH ×2 (00:04→08:11)
[2022-07-13] MEDS: ALBUTEROL SULFATE 2.5 MG/0.5 ML NEB SOLUTION NEB SCH ×4 (02:10→19:49)
[2022-07-13] MEDS: IPRATROPIUM BROMIDE 0.5 MG/2.5 ML NEB SOLUTION NEB SCH ×4 (02:11→19:49)
[2022-07-13 04:30] VITALS: BP 108/75
[2022-07-13 07:34] VITALS: BP 128/88
[2022-07-13 07:45] LABS: ANION GAP 3 mmol/L (8-16); CALCIUM, TOTAL 8.5 mg/dL (8.8-10.5); CARBON DIOXIDE 32 mmol/L (22-29); CHLORIDE 104 mmol/L (98-107); CREATININE 0.83 mg/dL (0.60-1.30); GLOMERULAR FILTR. RATE CALC > 60 mL/min (>60); GLUCOSE,RANDOM 221 mg/dL (70-110); POTASSIUM 5.2 mmol/L (3.5-5.1); SODIUM SERUM 139 mmol/L (136-145); UREA NITROGEN, BLOOD 32 mg/dL (7-18)
[2022-07-13] MEDS: DOCUSATE SODIUM 100 MG CAPSULE PO SCH ×2 (08:11→21:08)
[2022-07-13 15:17] VITALS: BP 107/67
[2022-07-13 20:42] VITALS: BP 116/58
[2022-07-13] MEDS: ATORVASTATIN CALCIUM 20 MG TABLET PO SCH (21:08)
[2022-07-14] MEDS: ALBUTEROL SULFATE 2.5 MG/0.5 ML NEB SOLUTION NEB SCH ×3 (02:47→13:44)
[2022-07-14] MEDS: IPRATROPIUM BROMIDE 0.5 MG/2.5 ML NEB SOLUTION NEB SCH ×3 (02:47→13:44)
[2022-07-14 04:25] VITALS: BP 99/58
[2022-07-14 08:13] VITALS: BP 152/79
[2022-07-14] MEDS: DOCUSATE SODIUM 100 MG CAPSULE PO SCH (08:36)
[2022-07-14] MEDS ORDERED: ASPIRIN 81 MG CHEWABLE TABLET PEG SCH (09:00)
[2022-07-14] MEDS ORDERED: AUD NEB (13:24)
[2022-07-14] MEDS ORDERED: ATOR20TA86 PO (13:24)
[2022-07-14] MEDS ORDERED: ASPI-1450 PO (13:24)
[2022-07-14] MEDS ORDERED: DOCU-385 PO (13:25)
[2022-07-14] MEDS ORDERED: IPRNEB IH (13:25)
[2022-07-14] MEDS ORDERED: BISA10SU11 PR (13:26)
[2022-07-14] MEDS ORDERED: ACET-2247 PO (13:26)
[2022-07-14] MEDS ORDERED: GUAIF10 PO (13:27)
== END 2022-07-14 15:16 | DRG 64 ==
LOC: EMS 13:35 → 5S 22:36 → 6S 07-06 19:10
PROVIDERS: ADMIT Internal Medicine; ATTEND Internal Medicine
PROC: 0DH63UZ Insertion of Feeding Device into Stomach, Percutaneous Approach (ICD-10-PCS; principal; 2022-07-06 14:35)
DX: I63.9 Cerebral infarction, unspecified (principal); G93.41 Metabolic encephalopathy; J96.01 Acute respiratory failure with hypoxia; J69.0 Pneumonitis due to inhalation of food and vomit; J45.901 Unspecified asthma with (acute) exacerbation; E44.0 Moderate protein-calorie malnutrition; E86.0 Dehydration; Z20.822 Contact with and (suspected) exposure to COVID-19; R13.10 Dysphagia, unspecified; R62.7 Adult failure to thrive; E87.5 Hyperkalemia; R79.89 Other specified abnormal findings of blood chemistry; D64.9 Anemia, unspecified; D69.6 Thrombocytopenia, unspecified; E11.9 Type 2 diabetes mellitus without complications; F01.50 Vascular dementia, unspecified severity, without behavioral disturbance, psychotic disturbance, mood disturbance, and anxiety; I48.91 Unspecified atrial fibrillation; Z74.01 Bed confinement status; Z79.4 Long term (current) use of insulin; Z68.21 Body mass index [BMI] 21.0-21.9, adult; Z79.899 Other long term (current) drug therapy
CPT/HCPCS: 70496; 70498; 70551; 71045; 74230; 76705; 80048; 80053; 80061; 80307; 81001; 81002; 82140; 82948; 83605; 83735; 84100; 84132; 84145; 84443; 84484; 85025; 85610; 85730; 86850; 86900; 86901; 87040; 87086; 87186; 92507; 92526; 92610; 92611; 93005; 93306; 93880; 93970; 94640; 97163; 97167; 97530; 97535; 99291; J0456; J0690; J0696; J1644; J2250; J2704; J2920; J2930; J3010; J3490; J7030; J7040; J7050; Q9967; 36415-L1; 36415-TC; 70450; 70450-TC; J7613; Z7610